=== PATIENT | female | born 1995 | race Caucasian/White ===

== ENCOUNTER 2019-09-22 13:04 | Inpatient (IN) | payer MEDICAID ==
[~2019-09-22] VITALS: Ht 172.7 cm; Wt 68.2 kg
[2019-09-22] MEDS: FOLIC ACID 1 MG TAB PO SCH (09:00)
[2019-09-22] MEDS: MULTIVITAMINS/MINERALS THERAP 1 TAB PO SCH (09:00)
[2019-09-22] MEDS ORDERED: KEPP1TAB PO (13:16)
[2019-09-22] MEDS ORDERED: DIPH50CA PO (13:21)
[2019-09-22] MEDS ORDERED: ZYPR5TAB2 PO (13:21)
[2019-09-22] MEDS ORDERED: RISP1SS PO (13:21)
[2019-09-22] MEDS ORDERED: LORA2CON5 PO (13:21)
[2019-09-22] MEDS ORDERED: levETIRAcetam 250MG TABLET (KEPPRA) PO ONE ×2 (14:00→20:45)
[2019-09-22] MEDS ORDERED: RISP1TAB3 PO (15:18)
[2019-09-22] MEDS ORDERED: TRAM50TA2 PO (15:18)
[2019-09-22] MEDS ORDERED: IBUP1TAB6 PO (15:18)
[2019-09-22] MEDS ORDERED: NICO2GUM MT (15:18)
[2019-09-22] MEDS ORDERED: ROPI0.253 PO (15:18)
[2019-09-22] MEDS ORDERED: TRAZ-252 PO (15:18)
[2019-09-22] MEDS ORDERED: OLAN10TA2 PO (15:18)
[2019-09-22] MEDS ORDERED: HYDR50CA2 PO (15:18)
[2019-09-22] MEDS ORDERED: DULC5TAB PO (15:18)
[2019-09-22] MEDS ORDERED: ONDA4TAB6 PO (15:18)
[2019-09-22] MEDS ORDERED: LORA1TAB4 PO (15:18)
[2019-09-22] MEDS ORDERED: VENTAER INH (15:18)
[2019-09-22] MEDS ORDERED: MULTCAP PO (15:18)
[2019-09-22] MEDS ORDERED: traZODone 50 MG TAB PO PRN (15:30)
[2019-09-22] MEDS ORDERED: LORazepam 2 MG TAB PO PRN (15:30)
[2019-09-22] MEDS ORDERED: MAALOX 30 ML SUSP *UDC PO PRN (15:30)
[2019-09-22] MEDS ORDERED: OLANZapine ORAL DISINTEGRATING TAB 5MG PO PRN (15:30)
[2019-09-22] MEDS ORDERED: MOM 30ML SUSPENSION UDC PO PRN (15:30)
[2019-09-22] MEDS: THIAMINE 100 MG TAB PO SCH ×2 (16:00→23:04)
[2019-09-22] MEDS ORDERED: traMADol 50 MG TAB PO ONE (18:45)
[2019-09-22] MEDS: levETIRAcetam 250MG TABLET (KEPPRA) PO SCH (21:00)
[2019-09-22 22:00] VITALS: BP 136/62
[2019-09-22 22:34] VITALS: BP 136/62
[2019-09-22] MEDS ORDERED: NICOTINE POLACRILEX 2 MG GUM MT PRN (23:00)
[2019-09-22] MEDS ORDERED: ONDANSETRON 4 MG ORAL DISINTEGRATING TAB (Q0162 PER 1MG) PO PRN (23:00)
[2019-09-22] MEDS ORDERED: BISACODYL 5 MG TAB PO PRN (23:00)
[2019-09-22] MEDS ORDERED: ALBUTEROL 90 MCG/ACT 8GM HFA INHALER INH PRN (23:00)
[2019-09-22] MEDS ORDERED: LORazepam 1 MG TAB PO PRN (23:00)
[2019-09-22] MEDS ORDERED: hydrOXYzine 50 MG TAB PO PRN (23:00)
[2019-09-22] MEDS: diphenhydrAMINE 25 MG CAP PO PRN (23:04)
[2019-09-22] MEDS: traMADol 50 MG TAB PO PRN (23:05)
[2019-09-22] MEDS: risperiDONE 1 MG TAB PO SCH (23:06)
[2019-09-23 02:40] VITALS: BP 130/60
[2019-09-23] MEDS: diphenhydrAMINE 25 MG CAP PO PRN (05:22)
[2019-09-23 05:56] VITALS: BP 115/80
[2019-09-23] MEDS: traMADol 50 MG TAB PO PRN ×2 (06:23→12:05)
[2019-09-23 06:45] VITALS: BP 115/80
[2019-09-23 08:28] VITALS: BP 115/80
--- NOTE | 2019-09-23 08:28 | MHHPEPDOC ---
[facility] History & Physical History and Physical DATE OF ADMISSION: Sep 22, 2019 at 15:18 New Patient Tiana Finley MRN: [id number] Date of : N/A Date of Service: 09/23/2019 Chief Complaint " I don't want to . I want to see my surgeon." History of Present Illness The patient is a 23-year-old woman who was transferred from a [facility], presents after reportedly becoming quite intoxicated and taking too many ibuprofen. Patient reports that she does not remember the events that had brought her in and notes that when she drinks she is prone to doing impulsive behavior. 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 The patient reports that she does have some stressor about her health but that her boyfriend is very supportive and "helps her get through it." The patient has a notable history in the integrated health records from [facility] for presenting multiple different times in an unusual order first for opioid medications and then for psychiatric admission when these are declined. When the patient was met with, she stated that when she is not drinking, she does not have significant depression. She reports feeling down about her health at times but feels motivated to getting treatment when she is not using. She has a history of heroin use in the past. She grossly denies most psychiatric symptoms and reports that she wishes to go home so that she might be able to see her colorectal surgeon for a repair of her ostomy that has inverted. Review Of Systems Depression: The patient denies any episodes of unprovoked depressed mood associated with neurovegetative symptoms lasting longer than 2 weeks with symptoms present nearly everyday. Anxiety: The patient denies any excessive worry associated with physical symptoms. They deny any experience of discreet panic in the past. Chantale: The patient denies any episodes of euphoria/dysphoria associated with decreased need for sleep, hedonism, talkatively or impulsivity lasting longer than 5 days. Psychotic: The patient denies any experiences of auditory or visual h allucinations. They deny any episodes of paranoia or delusional thinking in the past Trauma: The patient denies any traumatic events associated with nightmares or intrusive thoughts. Borderline: The patient screens negative for borderline personality at this junction. Past Psychiatric History Reports a history of multiple psych admissions. She reports multiple admissions after drinking alcohol. She is on a unusual complication medications. Currently follows up with the local psychiatrist in that area. Reports no suicide attempts. Allergies Please see below. Family Psychiatric History The patient denies/is unaware any history of mental health history including addictions and suicide. Social History The patient currently lives in DSS housing with her boyfriend. She is currently single, unmarried with no reported children. She denies any significant history of legal problems. Reports that she was able to get through school, but is currently unemployed due to her medical problem. Substance Abuse History Reports having significant alcohol use when she does drink, but denies that much. Denies tobacco or illicit drug use at this time. Reports history of heroin use in the past. 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 Mental Status Examination General: Well dressed with good hygiene Speech: Spontaneous and fluid Thought processes: Linear and logical MSK: Smooth and coordinated gait, no signs of tremors or involuntary orofacial movements Thought content: Future orientated Abstract reasoning, and computation: Intact Description of associations: Intact Description of abnormal or psychotic thoughts: Denies any suicidal or homicidal ideation. Denies any auditory or visual hallucinations. Does not appear to be responding to internal stimuli. Does not appear to be endorsing any bizarre or paranoid ideation. Judgment: fair Insight: fair Orientation: Alert and orientated 3 Cognition: Grossly normal Recent and remote memory: Intact Attention span and concentration: Intact Fund of knowledge: Adequate Mood: "okay" Affect: Euthymic with a full range Diagnoses Unspecified depressive disorder. Alcohol use disorder, moderate to severe. Opioid use disorder, unspecified. Assessment and Plan The patient is a 23-year-old woman with a history of primarily alcohol-related presentations for impulsive behavior while intoxicated, presents after becoming intoxicated, just transferred and after several days in transit has arrived to our unit. She reports that she has some stressors related to her health problems, but it appears she has quite a bit of substance use problems that appear to be minimized at times; however, her depression appears to be mild and transient suggesting highly likely that it is substance-induced rather than yadiel r depression. A mild adjustment disorder could be possible as well. The patient at this time does not meet involuntary criteria in my opinion as she is denying any suicidal and homicidal ideation. Denies auditory and visual hallucinations. Has a normal mental status exam. Has a fair insight into the situation. Focused on future goals of seeing her surgeon in order to have her stoma repaired. Has good support in home and safety planning has been undertaken with boyfriend at [facility]. She declines further voluntary admission and thus must be discharged in good pop. Disposition Same day discharge. Problem List 1. Risk for suicide. 2. Ineffective coping. 3. Substance use. Initial Treatment Plan 1. Patient was admitted on a 9.39 legal status. 2. Complete history was obtained. 3. With patients permission, family will be contacted and database will be expanded. 4. Patients medication regimen will be reviewed and changed accordingly. 5. Patient will be provided with protected environment. 6. Patient will be treated with individual, group, and milieu therapies. 7. Patient will receive supportive psych-education. 8. Discharge planning will commence immediately. 9. Outpatient follow-up treatment will be strongly recommended. 10. The initial treatment plan will focus initially on: Estimated Length Of Stay 1 day. Time Spent 70 minutes. Monday Vital Signs Vital Signs Date Time Temp Pulse Resp B/P (MAP) Pulse Ox O2 Delivery O2 Flow Rate FiO2 09/23/19 06:55 16 09/23/19 06:45 98 115/80 09/23/19 05:56 97.9 09/22/19 22:34 100 Room Air Laboratory Data 24H Labs Laboratory Tests 2 09/23/19 02:33: Bedside Glucose (Misc Panel) 103 FSBS Laboratory Tests Test 09/23/19 02:33 Range/Units Bedside Glucose (Misc Panel) 103 70-105 MG/DL Medications Scheduled Levetiracetam (Keppra) 500 Mg Tablet, 500 MG PO TID, (Reported) Home med Multivitamin (Multivitamins) 1 Each Capsule, 1 CAP PO DAILY, (Reported) Home med Olanzapine (Olanzapine) 10 Mg Tablet, 10 MG PO DAILY, (Reported) Home med Risperidone (Risperidone) 1 Mg Tablet, 1 MG PO BID, (Reported) Home med Ropinirole HCl (Ropinirole HCl) 0.25 Mg Tablet, 0.25 MG PO QHS, (Reported) Home med Scheduled PRN Albuterol Sulfate (Ventolin Hfa) 18 Gm Hfa.aer.ad, 2 PUFF INH Q4-6HP PRN for wheezing, (Reported) Home med Bisacodyl (Dulcolax) 5 Mg Tablet.dr, 10 MG PO DAILY PRN for CONSTIPATION, (Reported) Home med Diphenhydramine HCl (Diphenhydramine HCl) 50 Mg Capsule, 50 MG PO PRN PRN for ANXIETY, (Reported) Home med Hydroxyzine Pamoate (Hydroxyzine Pamoate) 50 Mg Capsule, 50 MG PO TID PRN for ANXIETY, (Reported) Ibuprofen (Ibuprofen) 600 Mg Tablet, 600 MG PO TID PRN for PAIN, (Reported) Lorazepam (Lorazepam) 1 Mg Tablet, 1 MG PO QID PRN for ANXIETY, (Reported) Home med Nicotine Polacrilex (Nicotine Gum) 2 Mg Gum, 4 MG MT Q4H PRN for cravings, (Reported) Ondansetron (Ondansetron Odt) 4 Mg Tab.rapdis, 4 MG PO Q8H PRN for NAUSEA OR VOMITING, (Reported) Tramadol HCl (Tramadol HCl) 50 Mg Tablet, 50 MG PO TID PRN for PAIN, (Reported) Trazodone HCl (Trazodone HCl) 50 Mg Tablet, 50 MG PO QHS PRN for SLEEP, (Reported) Allergies Coded Allergies: Penicillins (Verified Allergy, Severe, anaphylaxis, 09/22/19) doxycycline (Verified Allergy, Severe, anaphylaxis, 09/22/19) ondansetron (Verified Allergy, Mild, rash, 09/22/19) promethazine (Verified Allergy, Mild, rash, 09/22/19) haloperidol (Verified Adverse Reaction, Mild, aggression, 09/22/19) ketorolac (Verified Adverse Reaction, Mild, aggression, 09/22/19) metoclopramide (Verified Adverse Reaction, Mild, aggression, 09/22/19) acetaminophen (Verified Adverse Reaction, Unknown, "Not supposed to take a lot", 09/22/19) ibuprofen (Verified Adverse Reaction, Unknown, "Not supposed to take a lot", 09/22/19) TERRY HORTON DO Sep 23, 2019 08:28
[2019-09-23] MEDS: levETIRAcetam 250MG TABLET (KEPPRA) PO SCH (08:48)
[2019-09-23] MEDS: FOLIC ACID 1 MG TAB PO SCH (08:48)
[2019-09-23] MEDS: MULTIVITAMINS/MINERALS THERAP 1 TAB PO SCH (08:48)
[2019-09-23] MEDS: THIAMINE 100 MG TAB PO SCH (08:48)
[2019-09-23] MEDS: risperiDONE 1 MG TAB PO SCH (08:48)
[2019-09-23] MEDS ORDERED: OLANZapine 10 MG TAB PO SCH (09:00)
[2019-09-23] MEDS ORDERED: ACETAMINOPHEN TAB 650MG DOSE (2X325MG) PO ONE (09:00)
[2019-09-23] MEDS ORDERED: rOPINIRole 0.25 MG TAB(REQUIP) PO SCH (21:00)
== END 2019-09-23 12:15 | disposition home or self-care (01) | DRG 754 ==
LOC: M ED 13:04 → M ED INP 15:18 → M PSY 21:44
PROVIDERS: ADMIT Psychiatry & Neurology Addiction Medicine; ATTEND Psychiatry & Neurology Addiction Medicine
DX: F32.9 Major depressive disorder, single episode, unspecified (principal); F10.20 Alcohol dependence, uncomplicated; F11.10 Opioid abuse, uncomplicated; Z93.3 Colostomy status; Z79.899 Other long term (current) drug therapy; Z88.0 Allergy status to penicillin; Z88.1 Allergy status to other antibiotic agents; Z88.6 Allergy status to analgesic agent; Z88.8 Allergy status to other drugs, medicaments and biological substances